=== PATIENT | female | born 1965 | race Caucasian/White ===

== ENCOUNTER 2021-10-20 18:40 | Emergency (ER) | payer MEDICAID, OTHER ==
[~2021-10-20] VITALS: Ht 172.7 cm; Wt 71.8 kg
[~2021-10-20 18:40] MED LIST: NOCURR
[2021-10-20 19:25] VITALS: BP 132/76
[2021-10-20] MEDS ORDERED: TRAM50TA4 PO (20:01)
[2021-10-20] MEDS ORDERED: IBUP-1554 PO (20:01)
[2021-10-20] MEDS ORDERED: AZIT-84 PO (20:01)
[2021-10-20] MEDS ORDERED: ACET-66 PO (20:01)
== END 2021-10-20 20:41 | disposition home or self-care (01) ==
LOC: EMS 18:43
DX: J06.9 Acute upper respiratory infection, unspecified (principal); F17.210 Nicotine dependence, cigarettes, uncomplicated
CPT/HCPCS: 99283; Z7502

== ENCOUNTER 2021-10-22 09:45 | Emergency (ER) | payer OTHER ==
[~2021-10-22] VITALS: Ht 162.6 cm; Wt 72.7 kg
[~2021-10-22 09:45] MED LIST changes: +ACET-66 PO; +AZIT-84 PO; +IBUP-1554 PO; +TRAM50TA4 PO
[2021-10-22] MEDS ORDERED: PENI500T2 PO (12:12)
[2021-10-22 12:18] VITALS: BP 141/92
== END 2021-10-22 12:14 | disposition home or self-care (01) ==
LOC: EMS 09:45
DX: K04.7 Periapical abscess without sinus (principal); F17.210 Nicotine dependence, cigarettes, uncomplicated
CPT/HCPCS: 99283; Z7502